=== PATIENT | male | born 1990 | race American Indian/Alaskan Native ===

== ENCOUNTER 2016-03-16 05:50 | Emergency (ER) | payer MEDICAID ==
--- NOTE | 2016-03-16 05:56 | EDPHY ---
H & P HPI/ROS: HPI CHIEF COMPLAINT: Alcohol intoxication HISTORY OF PRESENT ILLNESS: This patient 25-year-old male is brought into the emergency room by EMS with police for alcohol intoxication. Patient presents emergency room he is highly intoxicated alcohol was slurring his speech and horizontal beating nystagmus consistent with acute alcohol intoxication. They found him sleeping on the sidewalk. No reported trauma. Upon arrival here in the emergency room he is intoxicated alcohol he has been sleeping most tonight cold weather. He is not hypothermic. Denies any other drugs or ingestion. Patient is on a [facility] Hold. Past Medical History: History of alcohol abuse, alcoholism Past Surgical History: denies any significant surgical history Social History: homeless, daily alcohol use, history of alcoholism Family History: noncontributory ROS REVIEW OF SYSTEMS: A comprehensive 10 point review of systems is otherwise negative aside from elements mentioned in the history of present illness. Exam Constitutional slurring speech, smells of alcohol, intoxicated triage nursing summary reviewed, vital signs reviewed. Eyes normal conjunctivae and sclera, EOMI, PERRLA. HENT normal inspection, atraumatic, moist mucus membranes, no epistaxis, neck supple/ no meningismus, no raccoon eyes. Respiratory clear to auscultation bilaterally, normal breath sounds, no respiratory distress, no wheezing. Cardiovascular rate normal, regular rhythm, no murmur, no edema, distal pulses normal. Gastrointestinal soft, non-tender, no rebound, no guarding, normal bowel sounds, no distension, no pulsatile mass. Genitourinary no CVA tenderness. Musculoskeletal no midline vertebral tenderness, full range of motion, no calf swelling, no tenderness of extremities, no meningismus, good pulses, neurovascularly intact. Skin pink, warm, & dry, no rash, skin atraumatic. Neurologic awake, alert and oriented x 3, AAOx3, moves all 4 extremities equally, motor intact, sensory intact, CN II-XII intact, Horizontal beating nystagmus consist with acute alcohol intoxication, slurring speech, ataxia Psychiatric normal mood/affect. Heme/Lymph/Immune no lymphadenopathy. Differential Diagnosis: includes but is not limited to in a particular order acute alcohol intoxication, alcoholism, dehydration, cold exposure, hypothermia Medical Decision Making: this patient her breath alcohol. We placed a monitor will check his temperature. Warm blanket. He will be monitored until he is sober enough until he can be discharged to the [facility]. Re-evaluation: 0632: Re-examination at this time this patient ambulatory without any difficulty. He is resting comfortably. Now sober, no ataxic gait. Breath alcohol was 422. However he is clinically sober. He will be dispositioned to the [facility]. No longer slurring speech stable steady gait no ataxia. Source: Patient, Police, EMS - Medical/Surgical History Hx Asthma: No Hx Chronic Respiratory Disease: No Hx Diabetes: No Hx Cardiac Disease: No Hx Renal Disease: No Hx Cirrhosis: No Hx Alcoholism: Yes Hx HIV/AIDS: No Hx Splenectomy or Spleen Trauma: No Other PMH: CONCUSSION X3 01/2014 DUE TO FALLS/ETOH, L WRIST FX A CHILD, FALL ON L KNEE, ankle fx - Social History Smoking Status: Current every day smoker Constitutional: Initial Vital Signs Temperature (C) 36.7 C 03/16/16 06:01 Heart Rate 93 03/16/16 06:01 Respiratory Rate 16 03/16/16 06:01 Blood Pressure 121/81 H 03/16/16 06:01 O2 Sat (%) 96 03/16/16 06:01 O2 Delivery Mode Room Air Allergies/Adverse Reactions: Penicillins Allergy (Mild, Verified 03/16/16 06:00) Departure - Departure Disposition: Home, Routine, Self-Care Clinical Impression: Alcohol intoxication Qualifiers: Complication of substance-induced condition: uncomplicated Qualifier Code: ( F10.120) Alcohol abuse with intoxication, uncomplicated Condition: Good Instructions: Abuse of Alcohol (ED) Referrals: Patient,NotPresent [Unknown] - As per Instructions
[2016-03-16 06:06] VITALS: BP 121/81; PULSE 93; RESP 16; TEMP 98.1; O2SAT 96
== END 2016-03-16 06:54 | disposition home or self-care (01) ==
LOC: EDUNIT#
DX: F10.120 Alcohol abuse with intoxication, uncomplicated (principal); F17.200 Nicotine dependence, unspecified, uncomplicated

== ENCOUNTER 2016-03-21 20:17 | Emergency (ER) | payer MEDICAID ==
[2016-03-21 20:26] VITALS: RESP 18
--- NOTE | 2016-03-21 20:30 | EDPHY ---
H & P Time Seen by Provider: 03/21/16 20:29 HPI/ROS: CHIEF COMPLAINT: Alcohol, can't walk HISTORY OF PRESENT ILLNESS: Found sleeping behind [employer] but was unable to stand or walk. Admits to vodka. Denies any other medical complaints. No trauma or fall. No overdose. REVIEW OF SYSTEMS: Eye: no change in vision ENT: no sore throat Cardiac: no chest pain or syncope Pulmonary: no cough or SOB Abdomen: no vomiting, diarrhea, abdominal pain Musculoskeletal: no back pain Skin: no rash Neuro: no headache Constitutional: no fever : no urinary symptoms A comprehensive 10 point review of systems is otherwise negative aside from elements mentioned in the history of present illness. PAST MEDICAL HISTORY: Alcoholism Social history: Smoker, drinking vodka today. General Appearance: Alert and conversant, cooperative. Eyes: No scleral icterus. ENT, Mouth: Normal mucous membranes. Respiratory: Normal respiratory effort, breath sounds equal, lungs are clear to auscultation. Cardiovascular: Regular rate and rhythm. Gastrointestinal: Abdomen is soft and non tender. Neurological: Alert and oriented x3. Normally conversant. Face symmetric, normal movement and sensation in all extremities. Skin: Warm and dry, no rashes. Musculoskeletal: No extremity deformity or tenderness. No spinal tenderness. Psychiatric: Not agitated. Emergency Department course/MDM: Pre-hospital glucose 96. Alcohol intoxication. Patient is ambulatory, has no medical complaints, stable for discharge to detox. Smoking Status: Current every day smoker Constitutional: Initial Vital Signs Temperature (C) 36.6 C 03/21/16 20:23 Heart Rate 87 03/21/16 20:23 Respiratory Rate 18 03/21/16 20:23 Blood Pressure 134/75 H 03/21/16 20:23 O2 Sat (%) 95 03/21/16 20:23 O2 Delivery Mode Room Air Allergies/Adverse Reactions: Penicillins Allergy (Mild, Verified 03/16/16 06:00) Home Medications: Medication Instructions Recorded NK [No Known Home Meds] 03/21/16 Medical Decision Making Differential Diagnosis: Differential for inability to walk and weakness considered including but not limited to hypoglycemia, stroke or seizure, alcohol or other drug intoxication Departure - Departure Disposition: Home, Routine, Self-Care Clinical Impression: Alcohol intoxication Condition: Good Instructions: Alcohol Intoxication (ED) Referrals: [facility] [Outside] - As per Instructions
[2016-03-21 22:12] VITALS: BP 159/79; PULSE 93; TEMP 98.4; O2SAT 94
== END 2016-03-21 22:09 | disposition home or self-care (01) ==
LOC: EDUNIT#
DX: F10.129 Alcohol abuse with intoxication, unspecified (principal); F17.200 Nicotine dependence, unspecified, uncomplicated

== ENCOUNTER 2016-04-09 00:25 | Emergency (ER) | payer MEDICAID ==
[2016-04-09 00:49] VITALS: RESP 16; TEMP 97.9
--- NOTE | 2016-04-09 01:00 | EDPHY ---
H & P Stated Complaint: Etoh Time Seen by Provider: 04/09/16 00:35 HPI/ROS: Chief complaint: Altered mental status HPI: 26-year-old male was found laying down of an apartment complex. Patient smelled of alcohol. Was responsive to painful stimuli and was following some commands. Is maintaining his airway. Not able to provide any significant history. ROS: Un obtainable secondary to patient's intoxication Past medical history: Unobtainable secondary to alcohol intoxication Medications: Unknown secondary to alcohol intoxication Physical exam: Gen: Somnolent, arousable to painful stimuli, maintaining his airway, smells strongly of alcohol HEENT: Atraumatic Nose: no rhinorrhea Eyes: PERRLA, EOMI Mouth: Moist mucosa Neck: Supple, no JVD Chest: nontender, lungs clear to auscultation Heart: S1, S2 normal, no murmur Abd: Soft, non-tender, no guarding Back: no CVA tenderness, no midline tenderness Ext: no edema, non-tender Skin: no rash Neuro: CN II-XII intact, Sensation grossly intact, Strength 5/5 in bilateral upper and lower extremities - Personal History Current Tetanus Diphtheria and Acellular Pertussis (TDAP): Unsure - Medical/Surgical History Hx Asthma: No Hx Chronic Respiratory Disease: No Hx Diabetes: No Hx Cardiac Disease: No Hx Renal Disease: No Hx Cirrhosis: No Hx Alcoholism: Yes Hx HIV/AIDS: No Hx Splenectomy or Spleen Trauma: No Other PMH: CONCUSSION X3 01/2014 DUE TO FALLS/ETOH, L WRIST FX A CHILD, FALL ON L KNEE, ankle fx, ETOH abuse - Social History Smoking Status: Current every day smoker Constitutional: Initial Vital Signs Temperature (C) 36.6 C 04/09/16 00:46 Heart Rate 81 04/09/16 00:46 Respiratory Rate 16 04/09/16 00:46 Blood Pressure 144/73 H 04/09/16 00:46 O2 Sat (%) 90 L 04/09/16 00:46 O2 Delivery Mode Room Air O2 (L/minute) 2 Allergies/Adverse Reactions: Penicillins Allergy (Mild, Verified 04/09/16 00:46) Home Medications: Medication Instructions Recorded NK [No Known Home Meds] 03/21/16 Medical Decision Making ED Course/Re-evaluation: 0542 patient is up and awake, ambulating unassisted to the bathroom. Currently without complaint. Departure - Departure Disposition: Home, Routine, Self-Care Clinical Impression: Alcohol intoxication Condition: Good Instructions: Alcohol Intoxication (ED) Additional Instructions: Please seek help to decrease your alcohol consumption. Medically cleared for the [facility]. Referrals: NONE *PRIMARY CARE P,. [Primary Care Provider] - As per Instructions
[2016-04-09 06:48] VITALS: BP 134/74; PULSE 74; O2SAT 92
== END 2016-04-09 06:48 | disposition home or self-care (01) ==
LOC: EDUNIT#
DX: F10.129 Alcohol abuse with intoxication, unspecified (principal); F17.200 Nicotine dependence, unspecified, uncomplicated

== ENCOUNTER 2016-04-11 22:41 | Emergency (ER) | payer MEDICAID ==
[2016-04-11 22:47] VITALS: RESP 12; TEMP 98.6
--- NOTE | 2016-04-11 22:50 | EDPHY ---
General - History Smoking Status: Current every day smoker Narrative: CHIEF COMPLAINT: Intoxication HISTORY OF PRESENT ILLNESS: patient arrived by EMS due to the police being contacted. They were notified by status in that the patient was sleeping on a sidewalk. Upon arrival, he was sleeping on the sidewalk and appeared to be intoxicated. He did awake and converse with them, but he would not provide any information or complaints. EMS was called. He arrives and is seen at time of arrival with no further complaints. He only admits to drinking alcohol today but will not provide any further information. He denies any complaints. He is somnolent but awakens easily both spontaneously a.m. with verbal stimuli. He does not appear to be in any acute distress. He does not have any outward signs of trauma. No modifying factors as he has no complaints. [facility] is currently on here and complaining an [facility] hold form. REVIEW OF SYSTEMS: Ten systems reviewed and are negative unless otherwise noted in the HPI EXAMINATION General Appearance: Alert, no distress , unkempt. Somnolent but awake spontaneously and with verbal cues. Head: normocephalic, atraumatic Eyes: Pupils equal and round, no conjunctival pallor . There is conjunctival injection. ENT, Mouth: Mucous membranes moist . Airway is patent. Neck: Normal inspection, supple, non-tender Respiratory: Mild rhonchi. No wheezing, crackles or diminishment. No consolidation. No retractions or distress. Cardiovascular: Tachycardic at 104 beats per minute. Regular rhythm. No murmur. Pulses intact distally with good signs of perfusion. Gastrointestinal: Abdomen is Obese, soft and nontender Neurological: alert to person and place. Intermittently oriented to time. Strength is symmetric in all limbs. Skin: Warm and dry, no rash Extremities: Nontender, no pedal edema Psychiatric: Intoxicated affect. Calm DIFFERENTIAL DIAGNOSES: Including but not limited to acute alcohol intoxication, chronic alcohol abuse , alcohol abuse MDM: 10:50 p.m. apparent acute alcohol intoxication. The patient denies any complaints. His vital signs are acceptable given his intoxication. He is hemodynamically stable in no acute distress. We will monitor him without intervention at this time. [facility] is completing an ARC hold 2:45 a.m. at this time I have checked out the patient to Dr. Perez. patient is still too intoxicated to ambulate on his own, but he is protecting his airway and awakes with minimal stimulus. He has required no intervention. Please see her note for final disposition. SUPERVISION: Patient was evaluated in conjunction with the supervising physician. Please see their note for details. (Chidi Cleveland) Medical Decision Making: PHYSICIAN DOCUMENTATION: The patient was evaluated and managed by the Physician [employer]. My co- signature indicates that I have reviewed this chart and I agree with the findings and plan of care as documented. I am the secondary supervising physician. The patient became more clinically sober during his stay and is able to walk with a steady gait. [facility]. (Deepa Perez) - Objective Vital Signs: Initial Vital Signs Temperature (C) 98.6 F 04/11/16 22:44 Heart Rate 104 H 04/11/16 22:44 Respiratory Rate 12 04/11/16 22:44 Blood Pressure 130/69 H 04/11/16 22:44 O2 Sat (%) 90 L 04/11/16 22:44 O2 Delivery Mode Room Air O2 (L/minute) 1 Allergies/Adverse Reactions: Penicillins Allergy (Mild, Verified 04/09/16 00:46) Home Medications: Medication Instructions Recorded NK [No Known Home Meds] 03/21/16 Medications Given: Discontinued Medications Chlordiazepoxide (Librium 25 Mg Prepack#6) 1 btl TAKEHOME EDNOW ONE Stop: 04/12/16 03:24 Last Admin: 04/12/16 03:30 Dose: 1 btl Departure - Departure Disposition: Other Psych, Not [place] Condition: Fair Referrals: NONE *PRIMARY CARE P,. [Primary Care Provider] - As per Instructions
[2016-04-12] MEDS ORDERED: CHLORDIAZEPOXIDE 25MG PREPK#6 BTL TAKEHOME ONE (03:23)
[2016-04-12 03:41] VITALS: BP 141/81; PULSE 68; O2SAT 95
== END 2016-04-12 03:40 ==
LOC: EDUNIT#
DX: F10.129 Alcohol abuse with intoxication, unspecified (principal); F17.200 Nicotine dependence, unspecified, uncomplicated

== ENCOUNTER 2016-05-30 13:36 | Emergency (ER) | payer MEDICAID ==
[2016-05-30 13:40] VITALS: TEMP 97.2
--- NOTE | 2016-05-30 13:41 | EDPHY ---
H & P Time Seen by Provider: 05/30/16 13:37 HPI/ROS: CHIEF COMPLAINT: Suspected alcohol intoxication HISTORY OF PRESENT ILLNESS: 26-year-old homeless male history of alcoholism arrives via ambulance after he was found passed out in a soccer field. No reports of trauma. No structures for which he could have fallen. Was noted to have alcohol and marijuana near by. REVIEW OF SYSTEMS: A ten point review of systems was performed and is negative with the exception of the items mentioned in the HPI PAST MEDICAL & SURGICAL HISTORY: Alcoholism SOCIAL HISTORY:admits to positive alcohol use PHYSICAL EXAM (Prior to examination, patient consented to physical exam, hands were washed and my usual and customary physical exam procedures followed) 1) GENERAL: poorly kept, dirty alert and oriented. Appears to be in no acute distress. 2) HEAD: Normocephalic, atraumatic 3) HEENT: Pupils equal, round, reactive to light bilaterally. Sclera anicteric. 4) NECK: Full range of motion, no meningeal signs. 5) LUNGS: Clear auscultation bilaterally 6) HEART: Regular rate and rhythm, no murmur, no heave, no gallop. 7) ABDOMEN: No guarding, no rebound, no focal tenderness, 8) MUSCULOSKELETAL: No peripheral edema or discoloration. 9) BACK: No CVA tenderness. 10) SKIN: No rash, no petechiae. DIFFERENTIAL DIAGNOSIS: in no particular including but not limited to alcohol use, marijuana use, polysubstance abuse - Medical/Surgical History Hx Asthma: No Hx Chronic Respiratory Disease: No Hx Diabetes: No Hx Cardiac Disease: No Hx Renal Disease: No Hx Cirrhosis: No Hx Alcoholism: Yes Hx HIV/AIDS: No Hx Splenectomy or Spleen Trauma: No Other PMH: CONCUSSION X3 01/2014 DUE TO FALLS/ETOH, L WRIST FX A CHILD, FALL ON L KNEE, ankle fx, ETOH abuse - Social History Smoking Status: Current every day smoker Constitutional: Initial Vital Signs Temperature (C) 36.2 C 05/30/16 13:38 Heart Rate 73 05/30/16 13:38 Respiratory Rate 16 05/30/16 13:38 Blood Pressure 127/69 H 05/30/16 13:38 O2 Sat (%) 97 05/30/16 13:38 O2 Delivery Mode Room Air Allergies/Adverse Reactions: Penicillins Allergy (Mild, Verified 04/09/16 00:46) Home Medications: Medication Instructions Recorded NK [No Known Home Meds] 03/21/16 Medical Decision Making ED Course/Re-evaluation: 5:00 p.m.: Care turned over to Dr. Alcira Mortensen. Patient is sleeping. Departure - Departure Disposition: Home, Routine, Self-Care Clinical Impression: Alcohol abuse Condition: Good Instructions: Abuse of Alcohol (ED) Referrals: [facility],. [Clinic] - 2-3 days, call for appt.
[2016-05-30 16:27] VITALS: O2SAT 95
[2016-05-30 17:41] VITALS: BP 110/64; PULSE 64; RESP 16
== END 2016-05-30 17:59 | disposition home or self-care (01) ==
LOC: EDUNIT#
DX: F10.10 Alcohol abuse, uncomplicated (principal); F17.200 Nicotine dependence, unspecified, uncomplicated

== ENCOUNTER 2016-06-01 19:08 | Emergency (ER) | payer MEDICAID ==
--- NOTE | 2016-06-01 21:11 | EDPHY ---
H & P Stated Complaint: ETOH, found down Time Seen by Provider: 06/01/16 20:00 HPI/ROS: CHIEF COMPLAINT: Alcohol intoxication, unresponsive HISTORY OF PRESENT ILLNESS: The patient is brought to the emergency department by paramedics with alcohol intoxication. The patient was found unresponsive on the sidewalk. There is no evidence of significant trauma. The patient does have a strong odor of alcohol on his breath. The patient is unable to provide much history secondary to his presumed intoxication. Reviewing his past medical records, the patient has been seen in the emergency department multiple times for alcohol intoxication this year. REVIEW OF SYSTEMS: A comprehensive 10 point review of systems is unobtainable secondary to altered mental status Source: EMS Exam Limitations: Clinical condition, Intoxication - Personal History Current Tetanus/Diphtheria Vaccine: Unsure Current Tetanus Diphtheria and Acellular Pertussis (TDAP): Unsure - Medical/Surgical History Hx Asthma: No Hx Chronic Respiratory Disease: No Hx Diabetes: No Hx Cardiac Disease: No Hx Renal Disease: No Hx Cirrhosis: No Hx Alcoholism: Yes Hx HIV/AIDS: No Hx Splenectomy or Spleen Trauma: No Other PMH: CONCUSSION X3 01/2014 DUE TO FALLS/ETOH, L WRIST FX A CHILD, FALL ON L KNEE, ankle fx, ETOH abuse - Social History Smoking Status: Current every day smoker - Physical Exam Exam: General Appearance: Somnolent, responds to painful stimuli, nonverbal Head: No signs of significant external head trauma Neck: In cervical collar, no gross deformity or step-off Eyes: Pupils equal and round no pallor or injection ENT, Mouth: Mucous membranes moist Respiratory: There are no retractions, lungs are clear to auscultation Cardiovascular: Regular rate and rhythm Gastrointestinal: Abdomen is soft and nontender, no masses, bowel sounds normal Neurological: Withdrawals to pain all 4 extremities Skin: Warm and dry, no rashes Musculoskeletal: Neck is supple nontender Extremities: symmetrical, full range of motion Constitutional: Initial Vital Signs Temperature (C) 37 C 06/01/16 19:25 Heart Rate 82 06/01/16 19:25 Respiratory Rate 16 06/01/16 19:25 Blood Pressure 107/65 06/01/16 19:25 O2 Sat (%) 90 L 06/01/16 19:25 O2 Delivery Mode Nasal Cannula O2 (L/minute) 2 Allergies/Adverse Reactions: Penicillins Allergy (Mild, Verified 04/09/16 00:46) Home Medications: Medication Instructions Recorded NK [No Known Home Meds] 03/21/16 Medical Decision Making ED Course/Re-evaluation: The patient presents to the ED with presumed alcohol intoxication. The patient is hemodynamically stable without evidence of significant trauma noted on exam. Plan will be for sobriety in the ED and serial exams indications. Re-examination at 10:15 p.m.. Patient is continuing to sober clinically. He is now ambulatory without acute complaints. He is able to walk steadily to the bathroom. I have removed his cervical collar as he has no midline cervical spine pain. The patient will be [facility] for [facility]. Differential Diagnosis: Differential diagnosis considered includes closed head injury, alcohol intoxication, hypoglycemia Departure - Departure Disposition: Home, Routine, Self-Care Clinical Impression: Alcohol dependence, Altered mental status Condition: Good Instructions: Alcohol Intoxication (ED) Referrals: [facility] [Outside] - As per Instructions
[2016-06-01 22:37] VITALS: BP 112/74; PULSE 87; RESP 16; TEMP 98.4; O2SAT 93
== END 2016-06-01 22:38 | disposition home or self-care (01) ==
LOC: EDUNIT#
DX: F10.20 Alcohol dependence, uncomplicated (principal); R41.82 Altered mental status, unspecified; F17.200 Nicotine dependence, unspecified, uncomplicated

== ENCOUNTER 2017-05-30 00:50 | Emergency (ER) | payer MEDICAID ==
--- NOTE | 2017-05-30 00:57 | EDPHY ---
H & P Time Seen by Provider: 05/30/17 00:52 HPI/ROS: Chief Complaint: Found down HPI: 27-year-old male was found down on [address] [place] [address] and [facility]. Patient admits to drinking alcohol this morning. Patient was unable to ambulate. No vomiting. Denies any falls. Did not his head. Patient mildly agitated per EMS. ROS: 10 point Review of Systems is negative except as noted in the HPI. PMH: Denies Social History: No smoking, daily heavy alcohol, no recreational drug use Family History: non-contributory Physical Exam: Gen: Somnolent, maintaining airway, responding to voice, smells of alcohol HEENT: Nose: no rhinorrhea Eyes: PERRLA, EOMI Mouth: Moist mucosa Neck: Supple, no JVD Chest: nontender, lungs clear to auscultation Heart: S1, S2 normal, no murmur Abd: Soft, non-tender, no guarding Back: no CVA tenderness, no midline tenderness Ext: no edema, non-tender Skin: no rash Neuro: CN II-XII intact, Sensation grossly intact, Strength 5/5 in bilateral upper and lower extremities - Medical/Surgical History Hx Asthma: No Hx Chronic Respiratory Disease: No Hx Diabetes: No Hx Cardiac Disease: No Hx Renal Disease: No Hx Cirrhosis: No Hx Alcoholism: Yes Hx HIV/AIDS: No Hx Splenectomy or Spleen Trauma: No Other PMH: CONCUSSION X3 01/2014 DUE TO FALLS/ETOH, L WRIST FX A CHILD, FALL ON L KNEE, ankle fx, ETOH abuse - Social History Smoking Status: Current every day smoker Constitutional: Initial Vital Signs Temperature (C) 37.0 C 05/30/17 00:54 Heart Rate 91 05/30/17 00:54 Respiratory Rate 16 05/30/17 00:54 Blood Pressure 136/67 H 05/30/17 00:54 O2 Sat (%) 92 05/30/17 00:54 O2 Delivery Mode Room Air Allergies/Adverse Reactions: Penicillins Allergy (Mild, Verified 04/09/16 00:46) Home Medications: Medication Instructions Recorded NK [No Known Home Meds] 03/21/16 Medical Decision Making ED Course/Re-evaluation: Patient is now awake and appropriate. Ambulating unassisted to the bathroom. No current complaints. Patient is tolerating oral fluids. Patient is ready for discharge with sober ride. Departure - Departure Disposition: Home, Routine, Self-Care Clinical Impression: Alcohol intoxication Condition: Good Instructions: Alcohol Intoxication (ED), Chlordiazepoxide (By mouth) Referrals: NONE *PRIMARY CARE P,. [Primary Care Provider] - As per Instructions
[2017-05-30] MEDS ORDERED: CHLORDIAZEPOXIDE 25MG PREPK#6 BTL TAKEHOME ONE (04:39)
[2017-05-30 04:49] VITALS: BP 133/91
== END 2017-05-30 05:09 | disposition home or self-care (01) ==
LOC: EDUNIT#
DX: F10.129 Alcohol abuse with intoxication, unspecified (principal); F17.200 Nicotine dependence, unspecified, uncomplicated

== ENCOUNTER 2017-06-10 23:49 | Emergency (ER) | payer MEDICAID ==
[2017-06-10 23:56] VITALS: BP 129/75
--- NOTE | 2017-06-10 23:56 | EDPHY ---
H & P Time Seen by Provider: 06/10/17 23:55 HPI/ROS: HPI CHIEF COMPLAINT: Alcohol Intoxication HISTORY OF PRESENT ILLNESS: Patient is a 27-year-old male well known to myself as well as the emergency room he is an alcoholic, homeless, he was sleeping at the [facility] when bystanders notified police and EMS. He was too unsteady to walk so brought to the emergency room the patient has no complaints. His breath alcohol upon arrival was 279. No trauma. Patient admits to rather large amount of alcohol this evening. Past Medical History: Alcoholism, daily alcohol use Past Surgical History: No recent surgery Social History: Homeless. Alcohol use daily. Family History: Noncontributory ROS REVIEW OF SYSTEMS: A comprehensive 10 point review of systems is otherwise negative aside from elements mentioned in the history of present illness. Exam Constitutional Intoxicated, triage nursing summary reviewed, vital signs reviewed, Sleepy, smells of alcohol Eyes normal conjunctivae and sclera, horizontal beating nystagmus consistent acute alcohol intoxication, otherwise pupils equal and react to light HENT normal inspection, atraumatic, moist mucus membranes, no epistaxis, neck supple/ no meningismus, no raccoon eyes. Respiratory clear to auscultation bilaterally, normal breath sounds, no respiratory distress, no wheezing. Cardiovascular rate normal, regular rhythm, no murmur, no edema, distal pulses normal. Gastrointestinal soft, non-tender, no rebound, no guarding, normal bowel sounds, no distension, no pulsatile mass. Genitourinary no CVA tenderness. Musculoskeletal no midline vertebral tenderness, full range of motion, no calf swelling, no tenderness of extremities, no meningismus, good pulses, neurovascularly intact. Skin pink, warm, & dry, no rash, skin atraumatic. Neurologic sleepy, intoxicated with alcohol,, alert and oriented x 3, AAOx3, moves all 4 extremities equally, motor intact, sensory intact, CN II-XII intact , , normal vision, normal speech. Psychiatric normal mood/affect. Heme/Lymph/Immune no lymphadenopathy. Differential Diagnosis: Includes but is not limited to in a particular order acute alcohol intoxication, alcohol abuse, dehydration, electrolyte abnormality , nausea vomiting from acute alcohol intoxication Medical Decision Making: Plan for this patient breath alcohol 279 he is intoxicated. Will monitor for worsening of condition monitor for sobriety. Re-evaluation: 1159: Breath alcohol 279. 1205AM: Patient ambulated well throughout the emergency room. Patient is stable gait. He is on an arc hold and police are here with him. They would like to take him to the [facility]. Librium will be provided. Source: Patient, Police, EMS - Medical/Surgical History Hx Asthma: No Hx Chronic Respiratory Disease: No Hx Diabetes: No Hx Cardiac Disease: No Hx Renal Disease: No Hx Cirrhosis: No Hx Alcoholism: Yes Hx HIV/AIDS: No Hx Splenectomy or Spleen Trauma: No Other PMH: CONCUSSION X3 01/2014 DUE TO FALLS/ETOH, L WRIST FX A CHILD, FALL ON L KNEE, ankle fx, ETOH abuse - Social History Smoking Status: Current every day smoker Constitutional: Initial Vital Signs Temperature (C) 36.5 C 06/10/17 23:53 Heart Rate 88 06/10/17 23:53 Respiratory Rate 16 06/10/17 23:53 Blood Pressure 129/75 H 06/10/17 23:53 O2 Sat (%) 96 06/10/17 23:53 O2 Delivery Mode Room Air Allergies/Adverse Reactions: Penicillins Allergy (Mild, Verified 06/10/17 23:53) Home Medications: Medication Instructions Recorded NK [No Known Home Meds] 03/21/16 Departure - Departure Disposition: Home, Routine, Self-Care Clinical Impression: Alcohol intoxication Qualifiers: Complication of substance-induced condition: uncomplicated Qualified Code(s): F10.920 - Alcohol use, unspecified with intoxication, uncomplicated Condition: Good Instructions: Alcohol Intoxication (ED), Chlordiazepoxide/Clidinium (By mouth) Referrals: NONE *PRIMARY CARE P,. [Primary Care Provider] - As per Instructions
[2017-06-11] MEDS ORDERED: CHLORDIAZEPOXIDE 25MG PREPK#6 BTL TAKEHOME ONE (00:04)
== END 2017-06-11 00:09 | disposition home or self-care (01) ==
LOC: EDUNIT#
DX: F10.920 Alcohol use, unspecified with intoxication, uncomplicated (principal); F17.200 Nicotine dependence, unspecified, uncomplicated

== ENCOUNTER 2017-07-22 23:07 | Emergency (ER) | payer MEDICAID ==
--- NOTE | 2017-07-22 23:18 | EDPHY ---
General - History Smoking Status: Current every day smoker Time Seen by Provider: 07/22/17 23:14 Narrative: CHIEF COMPLAINT: Alcohol intoxication, arc hold HISTORY OF PRESENT ILLNESS: M1/DETAINER: [facility] Hold by [employer] at time arrival REVIEW OF SYSTEMS: Ten systems reviewed and are negative unless otherwise noted in the HPI EXAMINATION General Appearance: Alert, no distress. Well-developed well-nourished. Strong odor of alcohol Head: normocephalic, atraumatic. No signs of trauma Eyes: Pupils equal and round. Reactive direct and consensually.. Will not follow commands well enough for EOM testing ENT, Mouth: Mucous membranes moist. Gag reflex in place Neck: Normal inspection, supple, non-tender Respiratory: Lungs are clear to auscultation Cardiovascular: Tachycardic rate. Regular rhythm. No murmur Gastrointestinal: Obese Abdomen is soft and nontender Back: non-tender, no bony abnormalities Neurological: Patient will not answer questions, thus I am not able to to assess is mental status. His GCS is 13 nonverbal Skin: Warm and dry, no rash. No petechiae or purpura Extremities: Moving all 4 extremities spontaneously and does withdraw from pain Psychiatric: Mood and affect normal DIFFERENTIAL DIAGNOSES: Including but not limited to acute alcohol intoxication, alcohol abuse, polysubstance abuse, chemical ingestion MDM: 11:15 p.m. Acute alcohol intoxication. Patient is known to this emergency department as an dependent alcohol abuser. He is open his eyes spontaneously. He is following some commands but is not answering our questions. This is not atypical for him from my previous evaluations. He is mildly tachycardic with a very strong odor of alcohol about him. Will monitor him. He is on an [facility] hold. 11:55 p.m. At this time I have discussed the case with Dr. Perez. She will assume care the patient at this time. He is awake and protecting his airway without difficulty. He a does have a strong odor of alcohol about him, and ETOH level is pending. We are recess sitting with IV fluid. His magnesium is normal. He has been given thiamine and folic acid. At this time she will assume care the patient. Please see her note for final disposition. He is pending arc hold when he is ambulatory SUPERVISION: Patient was evaluated and examined in conjunction with my secondary supervising physician as documented. We have both examined the patient. (Chidi Cleveland) PHYSICIAN DOCUMENTATION: The patient was evaluated and managed by the Physician Refrigeration Service Inspector. My co- signature indicates that I have reviewed this chart and I agree with the findings and plan of care as documented. I am the secondary supervising physician. The patient was re-evaluated by myself at approximately 2:00 a.m.. He continues to be intoxicated, he was able to walk however. He has no acute complaints. He will be discharged with the [facility]. (Deepa Perez) - Objective Vital Signs: Initial Vital Signs Temperature (C) 36.7 C 07/22/17 23:10 Heart Rate 108 H 07/22/17 23:10 Respiratory Rate 16 07/22/17 23:10 Blood Pressure 131/70 H 07/22/17 23:10 O2 Sat (%) 89 L 07/22/17 23:10 O2 Delivery Mode Room Air Allergies/Adverse Reactions: Penicillins Allergy (Mild, Verified 06/10/17 23:53) Home Medications: Medication Instructions Recorded NK [No Known Home Meds] 03/21/16 Laboratory Results: 07/22/17 23:25 Magnesium 2.2 mg/dL mg/dL (1.6-2.3) Ethyl Alcohol 460 mg/dL H* mg/dL (0-10) Medications Given: Discontinued Medications Sodium Chloride (Ns) 1,000 mls @ 0 mls/hr IV EDNOW ONE; Wide Open PRN Reason: Protocol Stop: 07/22/17 23:30 Last Admin: 07/22/17 23:34 Dose: 1,000 mls Departure - Departure Disposition: Law Enforcement/Court/[facility] Clinical Impression: Alcohol dependence Qualifiers: Substance use status: uncomplicated Qualified Code(s): F10.20 - Alcohol dependence, uncomplicated Alcohol intoxication Qualifiers: Complication of substance-induced condition: uncomplicated Qualified Code(s): F10.920 - Alcohol use, unspecified with intoxication, uncomplicated Condition: Good Instructions: Alcohol Dependence (ED) Referrals: Patient,NotPresent [Unknown] - As per Instructions [facility],. [Clinic] - As per Instructions [facility] 24 Hours [Outside] - As per Instructions
[2017-07-22] MEDS ORDERED: NS 1,000 ML IV ONE (23:29)
[2017-07-22] MEDS ORDERED: THIAMINE HCL 100 MG in NS 100 ML IV SCH (23:45)
[2017-07-23 02:14] VITALS: BP 89/60
== END 2017-07-23 02:16 ==
LOC: EDUNIT#
DX: F10.220 Alcohol dependence with intoxication, uncomplicated (principal); F17.200 Nicotine dependence, unspecified, uncomplicated
CPT/HCPCS: G0480; J3411

== ENCOUNTER 2017-12-17 14:44 | Emergency (ER) | payer MEDICAID, OTHER ==
--- NOTE | 2017-12-17 14:33 | EDPHY ---
H & P Time Seen by Provider: 12/17/17 14:55 Allergies/Adverse Reactions: Penicillins Allergy (Mild, Verified 06/10/17 23:53) Home Medications: Medication Instructions Recorded NK [No Known Home Meds] 03/21/16 Medical Decision Making ED Course/Re-evaluation: CHIEF COMPLAINT: Alcohol intoxication. HISTORY OF PRESENT ILLNESS: The patient is a 27 y/o chronic alcoholic [address]. Patient drinks on a daily basis and obtains whatever alcohol is available. Patient was found by bystanders who called EMS system. Patient has had multiple ER visits over the last several years for the same complaint. Patient denies any injuries denies loss of consciousness denies any recent trauma. Patient denies co-ingestion. Patient denies suicidal or homicidal behavior. REVIEW OF SYSTEMS: A comprehensive 10 system review of systems is otherwise negative aside from elements mentioned in the history of present illness and medical decision making. PHYSICAL EXAM: General Appearance: Alert, well hydrated, appropriate, and non-toxic appearing. Head: Atraumatic without scalp tenderness or obvious injury Eyes: Pupils equal, round, reactive to light and accommodation, EOMI, no trauma , no injection. Ears: Clear bilaterally, no perforation, normal landmarks Nose: Atraumatic, no rhinorrhea, clear. Throat: There is no erythema or exudates, no lesions, normal tonsils, mucus membranes moist. Neck: Supple, 2+ carotid upstroke, nontender, no lymphadenopathy. Respiratory: No retractions, no distress, no wheezes, and no accessory muscle use. Lungs are clear to auscultation bilaterally. Cardiovascular: Regular rate and rhythm, no murmurs, rubs, or gallops. Bilateral carotid, radial, dorsalis pedis, and posterior tibial pulses intact. Good capillary refill all extremities. Gastrointestinal: Abdomen is soft, nontender, non-distended, no masses, no rebound, no guarding, no peritoneal signs. Musculoskeletal: Normal active ROM of all extremities, atraumatic. Neurological: Alert, appropriate, and interactive. The patient has normal DTRs and non-focal cranial nerves, motor, sensory, and cerebellar exam. Skin: No rashes, good turgor, no nodules on palpation. PAST MEDICAL HISTORY: Alcoholism PAST SURGICAL HISTORY: Denies SOCIAL HISTORY: Transient, not employed, single DIAGNOSTICS/PROCEDURES/CRITICAL CARE TIME: Not indicated. DIFFERENTIAL DIAGNOSIS: The differential diagnosis for the patient's altered mental status included but was not limited to hypoglycemia, infectious process, electrolyte abnormality, head injury, neurologic process, anemia, cardiac process, and intoxicants. MEDICAL DECISION MAKING: I serially examined this patient since the patient's arrival here in the emergency department. The patient continues to become more and more sober with each examination. I serially questioned the patient and the patient's story given initially has not changed. The patient still denies any trauma, any head injury, and any illicit drug use. At this point, the patient is walking the department freely and is clinically sober. We're discharging the patient to the [facility] in stable condition. Departure - Departure Disposition: Home, Routine, Self-Care Clinical Impression: Alcohol intoxication Qualifiers: Complication of substance-induced condition: uncomplicated Qualified Code(s): F10.920 - Alcohol use, unspecified with intoxication, uncomplicated Condition: Good Instructions: Alcohol Intoxication (ED), Abuse of Alcohol (ED) Additional Instructions: 1. Please refrain from abusing alcohol. 2. Return to the emergency department immediately for fever, vomiting, confusion , headache, abdominal pain or other worsening of condition. 3. Followup with your primary care physician within 72 hours for reevaluation. Referrals: NONE *PRIMARY CARE P,. [Primary Care Provider] - As per Instructions [facility] 24 Hours [Outside] - As per Instructions Report Scribed for: Colt Langford Report Scribed by: Mayra Masterson Date of Report: 12/17/17 Time of Report: 14:55
[2017-12-17 14:58] VITALS: BP 131/70
== END 2017-12-17 15:25 | disposition home or self-care (01) ==
LOC: EDUNIT#
DX: F10.120 Alcohol abuse with intoxication, uncomplicated (principal)